=== PATIENT | male | born 1975 | race African-American/Black ===

== ENCOUNTER 2021-02-04 09:53 | Emergency (ER) | payer SELFPAY ==
[2021-02-04 10:00] VITALS: BP 147/95; PULSE 86; TEMP 98.2; BMI 28.8
[2021-02-04] MEDS ORDERED: METHOCARBAMOL 500 MG TABLET PO ONE (10:25)
[2021-02-04] MEDS ORDERED: KETOROLAC TROMETHAMINE 60 MG/2 ML VIAL IM ONE (10:25)
[2021-02-04] MEDS ORDERED: KETOROLAC TROMETHAMINE 60 MG/2 ML VIAL ONE (10:46)
[2021-02-04] MEDS ORDERED: METHOCARBAMOL 500 MG TABLET ONE (10:47)
== END 2021-02-04 11:57 | disposition home or self-care (01) ==
LOC: JERFT 09:53
PROC: 3E0233Z Introduction of Anti-inflammatory into Muscle, Percutaneous Approach (ICD-10-PCS; principal; 2021-02-04)
DX: M62.830 Muscle spasm of back (principal); M41.27 Other idiopathic scoliosis, lumbosacral region
CPT/HCPCS: 72100-TC-FY; 99284-25